=== PATIENT | male | born 1990 | race Two or more races ===

== ENCOUNTER → 2019-07-05 | Outpatient (REF) | payer BC, OTHER, SELFPAY ==
[2019-07-05 22:11] LABS: CHLAMYDIA DNA AMPLIFICATION NEGATIVE (NEGATIVE); GC DNA AMPLIFICATION NEGATIVE (NEGATIVE)
== END ==
LOC: M SFHCLERA 12:15
PROVIDERS: ATTEND Physician Assistant
DX: R36.9 Urethral discharge, unspecified (principal)

== ENCOUNTER 2020-08-07 14:01 | Day surgery (SDC) | payer OTHER ==
[~2020-08-07] VITALS: Ht 167.6 cm; Wt 80.3 kg
[2020-08-07] MEDS ORDERED: ceFAZolin 2 GM/D5W 50 ML IV BAG (J0690 PER 500MG) As Ordered ONE (14:30)
[2020-08-07] MEDS ORDERED: ceFAZolin SOD 2 GM in IV 1 EA IV ONE (14:45)
[2020-08-07] MEDS ORDERED: BUPIVACAINE HCL 0.5% 30 ML VIAL As Ordered ONE (14:54)
[2020-08-07] MEDS ORDERED: MIDAZOLAM INJ 2MG/2ML VIAL (J2250 PER 1MG) As Ordered ONE (15:35)
[2020-08-07] MEDS ORDERED: LIDOCAINE 2% 100MG/5ML SDV (FOR ANES.) As Ordered ONE (15:35)
[2020-08-07] MEDS ORDERED: fentaNYL 100 MCG/2 ML INJECTION (J3010) As Ordered ONE ×2 (15:35→18:22)
[2020-08-07] MEDS ORDERED: ONDANSETRON 4MG/2ML VIAL As Ordered ONE (15:35)
[2020-08-07] MEDS ORDERED: dexameTHASONE 4 MG/ML 1ML VIAL (J1100 PER 1MG) As Ordered ONE (15:35)
[2020-08-07] MEDS ORDERED: propofoL 200 MG/20 ML VIAL As Ordered ONE (15:35)
[2020-08-07] MEDS ORDERED: PHENYLephrine HCL 500 MCG/5 ML (100MCG/ML) SYRINGE (J2370) As Ordered ONE (18:01)
[2020-08-07] MEDS ORDERED: KETOROLAC 60MG 2ML VIAL As Ordered ONE (18:24)
[2020-08-07] MEDS ORDERED: HYDROMORPHONE HCL 0.5 MG/ 0.5 ML SYRINGE (J1170 PER 1) IV PRN (19:00)
[2020-08-07] MEDS ORDERED: ONDANSETRON 4MG/2ML VIAL IV PRN (19:00)
[2020-08-07] MEDS ORDERED: oxyCODONE 5MG TAB PO PRN (19:00)
[2020-08-07] MEDS ORDERED: LR 1,000 ML IV SCH ×2 (19:00→19:15)
[2020-08-07] MEDS ORDERED: fentaNYL 100 MCG/2 ML INJECTION (J3010) IV PRN (19:00)
[2020-08-07 19:59] VITALS: BP 137/86
--- NOTE | 2020-08-08 11:11 | RO ---
DATE OF OPERATION: 08/07/2020 PREOPERATIVE DIAGNOSIS: Left knee lateral meniscus tear. POSTOPERATIVE DIAGNOSES: 1. Left knee lateral meniscus tear. 2. Left knee chondromalacia. PROCEDURES: 1. Left knee arthroscopy with lateral meniscus repair and chondroplasty. 2. Left knee arthroscopic microfracture of the intercondylar notch to improve healing. SURGEON: Justin Espinosa MD TEXTILE ENGINEER: SHARMILA Blair ANESTHESIA: General. IV FLUIDS: Lactated Ringer's. ESTIMATED BLOOD LOSS: 5 mL. IMPLANTS: Arthrex 2.0 FiberWire times 3. CLOSURE: Nylon. DESCRIPTION OF PROCEDURE: The patient was identified in the preoperative holding area and the left leg was marked. He was brought to the operating room and placed supine on a well-padded OR table. General anesthesia induced. He received appropriate IV antibiotics within one hour of incision. Examination under anesthesia revealed 10 degrees of hyperextension bilaterally. He had a grade 1A Marian[place], negative posterior drawer. He had pseudolaxity to varus and valgus stress and this was symmetric. A well-padded tourniquet applied to the left thigh and then the left leg was then prepped and draped in normal sterile fashion from the toes up to the tourniquet with ChloraPrep. Prior to incision, a timeout was performed per hospital protocol. The left leg was then exsanguinated with an Esmarch bandage and tourniquet inflated to 250 mmHg. Luis Conde was present for the entire procedure. He participated in all essential portions of the procedure. This included patient positioning, draping, holding the arthroscope, holding the leg in the figure-four position with a varus load to open the lateral compartment, assisting with retrieval of sutures and holding the camera while I was tying knots. This was a complex meniscus repair and this required a skilled first coat sander. The left knee was insufflated with lactated Ringer's. A standard anterolateral portal was made with the 11 blade. A 30-degree arthroscope introduced into the joint. No chondromalacia of the patellofemoral joint. There was significant hypertrophy of the fat pad. A very large ligamentum mucosum. No loose bodies. Medial compartment was entered where there was no tearing of the medial meniscus but at the very far lateral aspect of the medial femoral condyle there was a flap of articular cartilage. The leg was brought to the figure-four position where there was a bucket-handle tear of the lateral meniscus. I probed that with a spinal needle. It appeared to be the inferior leaflet of the lateral meniscus and this attached to the mid portion of the posterior horn and then ran up to the anterior horn. So, then a medial portal was created under direct visualization. The fat pad was debrided. The ligamentum mucosum was debrided with the shaver. I probed the flap of the medial femoral condyle and it was stable. I tried to perform a chondroplasty but there were no loose fragments. This was extending from the far lateral articular surface and then up towards the notch. The lateral meniscus tear was probed. The bucket-handle part was not repairable; it was all entirely within the white zone. It was also quite thin. So between the meniscal biters and the shaver, I was able to remove that meniscal fragment. I then probed the meniscus. The root was stable laterally and the tear was essentially a horizontal tear that ran from the posterior horn up to the body. If I had performed a partial lateral meniscectomy, he would be left with no remaining meniscus and, therefore, I felt this warranted an attempt at a repair. He had grade 1 chondromalacia in the lateral femoral condyle and also the tibial plateau. So, the knee Scorpion was used through the lateral portal and I placed 2-0 FiberWire into the posterior horn in a horizontal mattress fashion. Sutures were placed in the mid point to peripheral third where were was better quality tissue and then the knot pusher was used to tie knots using an alternating half-hitch technique and this compressed the edges together nicely. Those same steps were repeated with another suture placed at the junction of the posterior horn and body and then the third and final placed at the body of the lateral meniscus. All these sutures were passed with the knee Scorpion and this gave excellent compression of the upper and inferior leaflets. Chondroplasty of the lateral femoral condyle was performed. The knee was taken through a range of motion and the repair remained intact. The repair was stable on probing. I then performed a microfracture of the intercondylar notch to improve healing. In the absence of anterior cruciate ligament (ACL) reconstruction and higher re- tear rates, and so the power pick was used to place three holes in the intercondylar notch just off the articular surface; three in the medial femoral condyle, three in the lateral femoral condyle; again, not through the articular cartilage, just off of it. Bone marrow and blood was noted to egress from those holes and the tourniquet was let down. The knee was irrigated and drained. Portals were closed with nylon suture. We injected 30 mL of 0.5% Marcaine without epinephrine. Bulky sterile dressing applied. The patient was placed into his knee brace locked in extension, extubated and transferred to the PACU in stable condition. DISPOSITION AND POSTOPERATIVE PLAN: The patient will have DVT prophylaxis consisting of aspirin for one month. He will be partial weightbearing for the first month and can progress to full weightbearing by six weeks. He can start jogging at three months, can start running at four months and unrestricted activity after five months. If at any point there is a re-tear of the lateral meniscus, this is probably going to need a lateral meniscal transplant and it would be unlikely amenable to a revision repair. [facility]
== END 2020-08-07 20:23 | disposition home or self-care (01) ==
LOC: M SDC 14:01
PROVIDERS: ATTEND Orthopaedic Surgery
DX: S83.282A Other tear of lateral meniscus, current injury, left knee, initial encounter (principal); X58.XXXA Exposure to other specified factors, initial encounter; M22.42 Chondromalacia patellae, left knee; Y92.89 Other specified places as the place of occurrence of the external cause; Y93.9 Activity, unspecified; Y99.9 Unspecified external cause status; G47.33 Obstructive sleep apnea (adult) (pediatric)
CPT/HCPCS: 29879; 29882; J0690; J1100; J1885; J2250; J2370; J2405; J3010

== ENCOUNTER → 2020-09-12 | Outpatient (CLI) | payer SELFPAY | LOC: M LABSMTC 13:06 | PROVIDERS: ATTEND Pediatrics | DX: Z20.828 Contact with and (suspected) exposure to other viral communicable diseases (principal) ==

== ENCOUNTER → 2020-11-14 | Outpatient (CLI) | payer SELFPAY | LOC: M LABSMTC 11:37 | PROVIDERS: ATTEND Pediatrics | DX: Z20.822 Contact with and (suspected) exposure to COVID-19 (principal) ==

== ENCOUNTER → 2023-05-20 | Outpatient (CLI) | payer OTHER | LOC: M RAD 08:48 | PROVIDERS: ATTEND Physician Assistant | DX: I10 Essential (primary) hypertension (principal) ==

== ENCOUNTER → 2023-06-15 | Outpatient (REF) | payer OTHER ==
[2023-06-16 11:16] LABS: COMPLEMENT C3 116.9 MG/DL (84.0-160.0); COMPLEMENT C4 47.3 MG/DL (12-36)
[2023-06-18 16:08] LABS: ANCA-ATYPICAL <1:20 titer (Neg:<1:20); ANTI DS-DNA AB Negative (Negative); ANTINUCLEAR ANTIBODIES DIRECT Negative (Negative); CYTOPLASMIC NEUTROP AB ANCA-C <1:20 titer (Neg:<1:20); PERINUCLEAR AB ANCA-P <1:20 titer (Neg:<1:20)
== END ==
LOC: M LAB REF 09:57
PROVIDERS: ATTEND Internal Medicine Nephrology
DX: R80.9 Proteinuria, unspecified (principal)

== ENCOUNTER → 2024-08-24 | Outpatient (REF) | payer OTHER ==
[2024-08-28 13:42] LABS: FREE KAPPA LIGHT CHAINS SERUM 26.4 mg/L (3.3-19.4); FREE LAMBDA LIGHT CHAINS SERUM 15.5 mg/L (5.7-26.3); KAPPA/LAMBDA RATIO SERUM 1.7 (0.26-1.65)
[2024-08-30 14:57] LABS: FREE KAPPA LIGHT CHAINS URINE 19.84 mg/L (<=32.90); FREE LAMBDA LIGHT CHAINS URINE 5.32 mg/L (<=3.79); KAPPA/LAMBDA RATIO URINE 3.73 (<=8.69)
== END ==
LOC: M LAB REF 17:19
PROVIDERS: ATTEND Nurse Practitioner Family
DX: R80.9 Proteinuria, unspecified (principal)

== ENCOUNTER 2024-12-06 13:01 | Emergency (ER) | payer OTHER ==
[~2024-12-06] VITALS: Ht 167.6 cm; Wt 83.7 kg
[2024-12-06] MEDS ORDERED: AMLO1TAB25 (13:09)
[2024-12-06] MEDS ORDERED: LOSA100T46 (13:09)
[2024-12-06] MEDS ORDERED: ACYC1TAB PO (15:25)
[2024-12-06 15:45] VITALS: BP 135/85; TEMP 97.3; O2SAT 97
== END 2024-12-06 15:45 | disposition home or self-care (01) ==
LOC: M ED 13:01
DX: A60.01 Herpesviral infection of penis (principal); N50.89 Other specified disorders of the male genital organs; I10 Essential (primary) hypertension; Z79.899 Other long term (current) drug therapy